=== PATIENT | female | born 1995 | race Caucasian/White ===

== ENCOUNTER 2018-08-08 22:44 | Emergency (ER) | payer MEDICAID ==
--- NOTE | 2018-08-09 00:11 | ED Physician Documentation ---
PD HPI HEENT - Stated complaint Stated Complaint: SORE THROAT - Chief complaint Chief Complaint: Heent - History obtained from History obtained from: Patient - History of Present Illness Timing - onset: How many days ago (5) Timing - duration: Days (5) Timing - details: Gradual onset, Now resolved Location: Throat Improves: Medication Worsens: Swalllowing Associated symptoms: Swollen nodes, Headache. 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 She states that she has had this happen to her a number of times where her tonsils will swell she will get a bit of a sore throat when she does not get a good night sleep and this is now resolved. She did lose her voice the voice is come back. She would like a note saying that is okay for to go back to work and she feels like she is ready to do that. Review of Systems Constitutional: denies: Fever Eyes: denies: Decreased vision Ears: denies: Ear pain Nose: denies: Rhinorrhea / runny nose, Congestion Throat: reports: Sore throat (resolved) Cardiac: denies: Chest pain / pressure, Palpitations Respiratory: denies: Dyspnea, Cough GI: denies: Vomiting PD PAST MEDICAL HISTORY - Past Medical History Past Medical History: No - Past Surgical History Past Surgical History: No - Allergies Allergies/Adverse Reactions: Allergies Allergy/AdvReac Type Severity Reaction Status Date / Time sulfamethoxazole Allergy Nausea Verified 08/08/18 22:54 [From Bactrim] trimethoprim [From Bactrim] Allergy Nausea Verified 08/08/18 22:54 - Social History Does the pt smoke?: Yes Smoking Status: Current every day smoker Does the pt drink ETOH?: Yes Does the pt have substance abuse?: No PD ED PE NORMAL - Vitals Vital signs reviewed: Yes (normal ) - General General: Alert and oriented X 3, No acute distress, Well developed/nourished - HEENT HEENT: Atraumatic, PERRL, EOMI, Ears normal, Moist mucous membranes, Dentition benign, Other (There are 2+ cryptic tonsils without exudate. 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, No motor deficit, No sensory deficit, Normal speech Eye Opening: Spontaneous Motor: Obeys Commands Verbal: Oriented GCS Score: 15 - Psych Psych: Normal mood, Normal affect Results - Vitals Vitals: Vital Signs - 24 hr 08/08/18 22:50 Temperature 36.6 C Heart Rate 78 Respiratory 18 Rate Blood Pressure 114/67 O2 Saturation 99 Oxygen O2 Source Room air - Labs Labs: Laboratory Tests 08/08/18 23:32 Group A Strep Rapid Negative PD MEDICAL DECISION MAKING - ED course Complexity details: considered differential, d/w patient ED course: 22-year-old female with a sore throat that is now resolved wants to go back to work. On examination she has no evidence of otitis she does not have any exudate on her tonsils now and her rapid strep is negative. Departure - Departure Disposition: 01 Home, Self Care Clinical Impression: Hx of tonsillitis Condition: Stable Instructions: ED Tonsillitis Follow-Up: [facility] [Provider Group] Forms: Activity restrictions
[2018-08-09 00:37] VITALS: BP 132/85
== END 2018-08-09 00:30 | disposition home or self-care (01) ==
LOC: ED 22:44
DX: J03.90 Acute tonsillitis, unspecified (principal); F17.200 Nicotine dependence, unspecified, uncomplicated
CPT/HCPCS: 87070; 87430; 99282; 99283

== ENCOUNTER 2019-01-04 02:04 | Emergency (ER) | payer MEDICAID ==
--- NOTE | 2019-01-04 02:39 | ED Physician Documentation ---
History of Present Illness - Stated complaint Stated Complaint: COUGHING/SNEEZING - Chief complaint Chief Complaint: Heent - Additonal information Additional information: This is a 23-year-old female presents with 2 complaints: She has had some coughing and sneezing and a cough productive of yellow sputum for the last week. She has had rhinorrhea. She denies shortness of breath, hemoptysis, chest pain. She does have some sore throat. Because her symptoms have been present for around a week she wanted to get checked out. She also has had abnormal vaginal discharge for multiple weeks. She is sexually active with males and females and has Had multiple episodes of unprotected sex. On of her female partners was diagnosed with bacterial vaginosis and she is concerned that she may have bacterial vaginosis. She also would like to be tested for sexually transmitted infections. She denies burning or vaginal pain. Review of Systems Constitutional: denies: Fever Nose: reports: Rhinorrhea / runny nose Cardiac: denies: Chest pain / pressure Respiratory: reports: Cough. denies: Dyspnea : reports: Discharge PD PAST MEDICAL HISTORY - Past Surgical History Past Surgical History: No - Present Medications Home Medications: Ambulatory Orders Medication Instructions Recorded Confirmed Acetaminophen 650 mg PO Q6HR #30 tablet 01/04/19 Benzonatate [Tessalon Perle] 100 - 200 mg PO TID PRN #30 capsule 01/04/19 Ibuprofen 600 mg PO Q6H PRN #30 tablet 01/04/19 - Allergies Allergies/Adverse Reactions: Allergies Allergy/AdvReac Type Severity Reaction Status Date / Time sulfamethoxazole Allergy Nausea Verified 08/08/18 22:54 [From Bactrim] trimethoprim [From Bactrim] Allergy Nausea Verified 08/08/18 22:54 - Social History Does the pt smoke?: Yes Smoking Status: Current every day smoker Does the pt drink ETOH?: Yes Does the pt have substance abuse?: No PD ED PE NORMAL - Vitals Vital signs reviewed: Yes - General General: Alert and oriented X 3, No acute distress - HEENT HEENT: PERRL - Cardiac Cardiac: RRR, No murmur - Respiratory Respiratory: No respiratory distress, Clear bilaterally - Abdomen Abdomen: Soft, Non tender, Non distended - Female Female : Other (External vulva is normal in appearance. There is no significant discharge in the vaginal vault. There is a small amount of yellowish/clear discharge from the cervical os, and mild inflammation around the os. No cervical motion tenderness.) - Derm Derm: Warm and dry - Extremities Extremities: No deformity - Neuro Neuro: Alert and oriented X 3 - Psych Psych: Normal mood, Normal affect Results - Vitals Vitals: Vital Signs - 24 hr 01/04/19 01/04/19 02:07 04:11 Temperature 36.8 C Heart Rate 85 73 Respiratory 16 14 Rate Blood Pressure 125/85 H 111/76 O2 Saturation 100 100 Oxygen O2 Source Room air - Labs Labs: Microbiology 01/04/19 03:22 Wet Prep - Final Genital - Cervix Laboratory Tests 01/04/19 03:22 Ur Specific [place] >1.030 Urine HCG, Qual NEGATIVE PD MEDICAL DECISION MAKING - ED course Complexity details: considered differential (URI, pneumonia, pharyngitis, bronchitis, STI, bacterial vaginosis, PID) ED course: On exam patient is very well-appearing, she has some mild erythema of her pharynx, but her lungs are clear, her oxygen saturation is normal, her heart rate is normal. Given her reassuring physical exam and vital signs I highly doubt pneumonia, especially since her symptoms have been only ongoing for 1 week, and sounds like the productive cough has been present for even less than that. I discussed that she has a viral upper respiratory infection and we will try supportive care with Tylenol, ibuprofen, and Tessalon Perles for cough. I discussed rest and plenty of fluids as well. Patient agrees with this plan Patient has had vaginal discharge that has been abnormal for her for several weeks and has multiple episodes of unprotected sex with male and female partners, After discussion with her she would like STI screening including HIV and syphillis, empiric treatment, and a pelvic exam today. Pelvic exam shows mild inflammation around the cervical os, otherwise unrevealing with no signs of PID. Swabs are sent and wet mount shows No signs of BV or yeast infection. I discussed with her that she should abstain from sexual activity and till we have the results of her STD screen, and I recommended safe sexual practices including barrier contraception. Her test is negative. I answered patient's questions and recommended follow-up with her primary care provider. Patient agrees with this plan and was discharged home. Departure - Departure Disposition: 01 Home, Self Care Clinical Impression: URI (upper respiratory infection), Routine screening for STI (sexually transmitted infection) Condition: Good Instructions: ED URI Viral Follow-Up: Your,PCP [Other] Prescriptions: Acetaminophen 650 mg PO Q6HR #30 tablet Benzonatate [Tessalon Perle] 100 - 200 mg PO TID PRN #30 capsule PRN Reason: Cough Ibuprofen 600 mg PO Q6H PRN #30 tablet PRN Reason: Pain Comments: You were seen today for cough and cold-like symptoms, I do think this is a viral illness and given your exam and vital signs today I doubt that this is a pneumonia. Please use Tylenol, and ibuprofen as well as the Tessalon Perles to control your symptoms. Drink plenty of fluids and get lots of rest. If you are having worsening symptoms such as trouble breathing blood in your sputum, Please return to the emergency department. Otherwise please follow-up with your primary care provider. We do not see signs of bacterial vaginosis on your swabs today, we have treated you for the most common sexually transmitted infections, and you will be called if any of your results turn positive. Please abstain from sex until your results return. Discharge Date/Time: 01/04/19 04:12
[2019-01-04] MEDS ORDERED: AZITHROMYCIN 250 MG TABLET PO STA (02:40)
[2019-01-04] MEDS ORDERED: cefTRIAXone 250 MG VIAL IM STA (02:40)
[2019-01-04] MEDS ORDERED: LIDOCAINE 1% 2 ML VIAL MC ONE (02:40)
[2019-01-04 03:31] LABS: HCG UR QUAL NEGATIVE
[2019-01-04 04:13] VITALS: BP 111/76
[2019-01-04 21:17] LABS: TRICHOMONAS VAGINALIS DNA NEGATIVE (NEGATIVE)
[2019-01-05 14:43] LABS: HIV AG/AB 4TH GEN NON-REACTIVE (NON-REACTIVE)
== END 2019-01-04 04:12 | disposition home or self-care (01) ==
LOC: ED 02:04
DX: J06.9 Acute upper respiratory infection, unspecified (principal); N89.8 Other specified noninflammatory disorders of vagina; F17.200 Nicotine dependence, unspecified, uncomplicated
CPT/HCPCS: 36415; 81025; 86780; 87210; 87389; 87491; 87591; 87661; 96372; 99283; 99284; A9270

== ENCOUNTER 2019-05-27 11:57 | Emergency (ER) | payer MEDICAID ==
[2019-05-27 12:45] LABS: BILIRUBIN,URINE NEGATIVE (NEGATIVE); GLUCOSE, URINE (UA) NEGATIVE (NEGATIVE); KETONES,URINE (UA) TRACE mg/dL (NEGATIVE); LEUKOCYTE ESTERASE, URINE TRACE (NEGATIVE); NITRITE,URINE POSITIVE (NEGATIVE); OCCULT BLOOD,URINE NEGATIVE (NEGATIVE); PROTEIN,URINE NEGATIVE (NEGATIVE); UROBILINOGEN,URINE 0.2 (NORMAL) E.U./dL (NORMAL)
[2019-05-27 12:48] LABS: CLARITY,URINE HAZY (CLEAR); HCG UR QUAL NEGATIVE
[2019-05-27 12:56] LABS: BACTERIA,URINE Few /HPF (None Seen); MUCUS,URINE Few Strands; RBC,URINE 0-5 /HPF (0-5); SQUAMOUS EPITHELIAL CELL,UR MOD Squamous (<= Few)
[2019-05-27] MEDS ORDERED: NITROFURANTOIN MACRO 100 MG CAPSULE PO STA (13:27)
[2019-05-27 13:45] VITALS: BP 123/70
--- NOTE | 2019-05-27 13:45 | ED Physician Documentation ---
History of Present Illness - Stated complaint Stated Complaint: FEMALE - Chief complaint Chief Complaint: UTI - History obtained from History obtained from: Patient - History of Present Illness Timing: How many weeks ago (1) - Additonal information Additional information: Patient comes emergency department complaining of dysuria for the last week. She denies any abdominal pain. She states she is also had vaginal discomfort, which she clarifies to be itching and burning on a mild level, for the last several months. Patient states she has been seen by her primary care physician, as well as the emergency department, and tested for a variety of sexually transmitted diseases and bacterial vaginosis. She states that her test come back negative every time. She states she has been treated with Diflucan as well as vaginal preparations for yeast infection, but so far, her symptoms have not resolved. Patient states that her doctor told her she may need to have repeated doses of the Diflucan closer together if the most recent course did not resolve the symptoms patient denies any fevers or chills. She states she is currently sexually active, but does not have a new partner since the last time she was tested for STDs. Patient denies any vaginal bleeding that is unusual. She states she has had some clumpy white discharge. Mild itching. Review of Systems Ten Systems: 10 systems reviewed and negative Constitutional: reports: Reviewed and negative Eyes: reports: Reviewed and negative Ears: reports: Reviewed and negative Nose: reports: Reviewed and negative Throat: reports: Reviewed and negative Cardiac: reports: Reviewed and negative Respiratory: reports: Reviewed and negative GI: reports: Reviewed and negative : reports: Dysuria, Discharge Skin: reports: Reviewed and negative Musculoskeletal: reports: Reviewed and negative Neurologic: reports: Reviewed and negative Psychiatric: reports: Reviewed and negative Endocrine: reports: Reviewed and negative Immunocompromised: reports: Reviewed and negative PD PAST MEDICAL HISTORY - Past Medical History Past Medical History: Yes Cardiovascular: None Respiratory: Pneumonia Neuro: None Endocrine/Autoimmune: None GI: None 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 : Chronic bladder infection HEENT: None Psych: None Musculoskeletal: None Derm: None - Past Surgical History Past Surgical History: No - Present Medications Home Medications: Ambulatory Orders Medication Instructions Recorded Confirmed Fluconazole [Diflucan] 150 mg PO DAILY 7 Days #7 tablet 05/27/19 Nitrofurantoin Monohyd/M-Cryst 100 mg PO BID 7 Days #14 capsule 05/27/19 [Macrobid 100 mg Capsule] - Allergies Allergies/Adverse Reactions: Allergies Allergy/AdvReac Type Severity Reaction Status Date / Time sulfamethoxazole Allergy Nausea Verified 05/27/19 12:03 [From Bactrim] trimethoprim [From Bactrim] Allergy Nausea Verified 05/27/19 12:03 - Social History Does the pt smoke?: Yes Smoking Status: Current every day smoker Does the pt drink ETOH?: Yes Does the pt have substance abuse?: No - Immunizations Immunizations are current?: Yes PD ED PE NORMAL - Vitals Vital signs reviewed: Yes - General General: Alert and oriented X 3, No acute distress - HEENT HEENT: PERRL - Neck Neck: Supple, no meningeal sign - Cardiac Cardiac: RRR, No murmur - Respiratory Respiratory: Clear bilaterally - Abdomen Abdomen: Normal bowel sounds, Soft, Non tender, Non distended - Female Female : Deferred - Derm Derm: Warm and dry - Extremities Extremities: No deformity - Neuro Neuro: Alert and oriented X 3 - Psych Psych: Normal mood, Normal affect Results - Vitals Vitals: Vital Signs - 24 hr 05/27/19 05/27/19 12:02 13:44 Temperature 36.9 C 36.8 C Heart Rate 85 67 Respiratory 18 16 Rate Blood Pressure 117/60 123/70 O2 Saturation 100 100 Oxygen O2 Source Room air - Labs Labs: Laboratory Tests 05/27/19 12:20 Urine Color YELLOW Urine Clarity HAZY Urine pH 6.0 Ur Specific [place] 1.025 Urine Protein NEGATIVE Urine Glucose (UA) NEGATIVE Urine Ketones TRACE Urine Occult Blood NEGATIVE Urine Nitrite POSITIVE H Urine Bilirubin NEGATIVE Urine Urobilinogen 0.2 (NORMAL) Ur Leukocyte Esterase TRACE H Urine RBC 0-5 Urine WBC 6-10 H Ur Squamous Epith Cells MOD Squamous H Urine Bacteria Few Urine Mucus Few Strands Ur Microscopic Review INDICATED Urine Culture Comments NOT INDICATED Urine HCG, Qual NEGATIVE PD MEDICAL DECISION MAKING - ED course Complexity details: reviewed old records, reviewed results, considered different ial, d/w patient (I discussed with the patient that her urinalysis is positive for urinary tract infection.We have discussed that she may have an ongoing vaginal candidiasis, and as such, I will put her on a weeklong course of Diflucan. However, given that she has been tested multiple times for STDs and treated for yeast infection, yet she continues to have symptoms for these past several months, it is most likely time for her to see a psychologist chief for further evaluation. I have given her a recommendation from the emergency department and her discharge papers. We have discussed home management of the symptoms, as well as the usual indications for return.Patient is discharged home in good condition.) Departure - Departure Disposition: Home, Self Care Clinical Impression: Urinary tract infection Qualifiers: Urinary tract infection type: acute cystitis Hematuria presence: without hematuria Qualified Code(s): N30.00 - Acute cystitis without hematuria Condition: Good Instructions: ED UTI Cystitis Female Follow-Up: [facility] [Provider Group] Prescriptions: Fluconazole [Diflucan] 150 mg PO DAILY 7 Days #7 tablet Nitrofurantoin Monohyd/M-Cryst [Macrobid 100 mg Capsule] 100 mg PO BID 7 Days #14 capsule Comments: Your urinalysis is positive for infection. It is not clear why you continue to have vaginal discomfort. Since you have been having this discomfort for some months and has had multiple negative STD tests, it is probably a good idea for you to follow-up with a psychologist chief. Please see the follow-up recommendations above.
== END 2019-05-27 13:45 | disposition home or self-care (01) ==
LOC: ED 11:57
DX: N30.00 Acute cystitis without hematuria (principal); F17.200 Nicotine dependence, unspecified, uncomplicated
CPT/HCPCS: 81001; 81025; 99283; 99284; A9270; 81003; 87086